=== PATIENT | female | born 1990 | race American Indian/Alaskan Native ===

== ENCOUNTER 2017-03-25 07:30 | Inpatient (IN) | payer MEDICAID ==
--- NOTE | 2017-03-24 12:29 | History and Physical Report ---
History of Present Illness Date of examination: 03/22/17 Date of admission: 03/25/17 Chief complaint: here for c/s and tl History of present illness: Pt presents for repeat c/s with BTL. All questions have been addressed and answered. Consents were signed and placed on the chart. All risk,benefits and alternatives were d/w pt and questions were addressed and answered. EDC Calculations LMP: 05/20/2012 EDC Confirmation: 04/01/2017 Gestational Age: 8 4/7 weeks Past History : 3 Term Births: 2 Living Children: 2 Para: 2 Prev : 2 # 1 Delivery date: 2007 Weeks Gestation: FT labor: no Delivery type: Infant Sex: Female weight: 8-12 Comments: NRFHT # 2 Delivery date: 05/12/2012 Weeks Gestation: 39 Delivery type: Anesthesia type: epidural Delivery location: [facility] [place] Sex: female weight: 8.06 Past Medical History: Reviewed history from 10/14/2011 and no changes required: Negative Past Medical History Past Surgical History: Reviewed history from 10/14/2011 and no changes required: x2 Past Medical History Surgery (Non-rubber curer): x2 Abnormal PAP: negative MARGARETH Exposure: negative Infertility: negative Uterine Anomaly: negative Uterine Surgery (not C/S): negative Other Gynecologic Problems: negative Family Hx: father - DM Infection History Hx of STD: HSV HIV Risk Eval: no Hepatitis B Risk Eval: low risk Personal hx. of genital herpes: yes Partner hx. of genital herpes: no Rash, Viral, or Febrile illness since last LMP? no Varicella/Chicken Pox Status: Previous Disease TB Risk: no Genetic History Congenital Heart Defect: Mom: no Dad: no Candice Disease: Mom: no Dad: no Thalassemia Mom: no Dad: no Neural Tube Defect Mom: no Dad: no Down's Syndrome Mom: no Dad: no Brett-Sachs Mom: no Dad: no Sickle Cell Disease/Trait Mom: no Dad: no Hemophilia Mom: no Dad: no Muscular Dystrophy Mom: no Dad: no Cystic Fibrosis Mom: no Dad: no [place] Chorea Mom: no Dad: no Mental Retardation Mom: no Dad: no Fragile X Mom: no Dad: no Other Genetic/Chromosomal Disorder Mom: no Dad: no Child w/other defect Mom: no Dad: no Enviromental Exposures Xray Exposure: no Medication, drug, or alcohol use since LMP: no Chemical/Other Exposure: no Exposure to Cat Liter: no Hx of Parvovirus (Fifth Disease): no Occupational Exposure to Children: none Active Medications (reviewed today): LO LOESTRIN /10 (NORETHIN SANKET-ETH ESTRAD-FE TABS) () 1 po qd DEPO-PROVERA SUSP (MEDROXYPROGESTERONE ACETATE SUSP) Current Allergies (reviewed today): No known allergies Past History Past Medical History: no pertinent history Past Surgical History: section (x2) Family/Genetic History: none - Obstetrical History Expected Date of Delivery: 04/01/17 Actual Gestation: 39 Week(s) 0 Day(s) : 3 Para: 2 Hx # Term Pregnancies: 2 Number of Living Children: 2 Medications and Allergies Allergies Allergy/AdvReac Type Severity Reaction Status Date / Time No Known Allergies Allergy Unverified 01/25/16 11:46 Home Medications Medication Instructions Recorded Confirmed Last Taken Type Cyclobenzaprine HCl [Flexeril 5 MG 5 mg PO TID #20 tab 01/25/16 Unknown Rx TAB] Ibuprofen [Motrin 800 MG tab] 800 mg PO Q8HR PRN #30 tablet 01/25/16 Unknown Rx Active Meds: Active Medications Citric Acid/Sodium Citrate (Bicitra) 30 ml PO ONCE ONE Stop: 03/25/17 07:01 Famotidine (Pepcid) 20 mg IV ONCE ONE Stop: 03/24/17 12:18 Cefazolin Sodium (Ancef/Sterile Water 2 Gm/20 Ml) 2 gm in 20 mls @ 80 mls/hr IV PREOP NR PRN Reason: Protocol Lactated Ringer's (Lactated Ringers) 1,000 mls @ 2,250 mls/hr IV PREOP ANNE MARIE Stop: 03/25/17 13:27 Oxytocin/Sodium Chloride (Pitocin/Ns 20 Unit/1000ml Drip) 20 units in 1,000 mls @ 0 mls/hr IV TITR ANNE MARIE PRN Reason: As Directed Lidocaine/Prilocaine (Emla) 1 applic TP ONCE PRN PRN Reason: for fisher catheter insertion Metoclopramide HCl (Reglan) 10 mg IV ONCE ONE Stop: 03/25/17 07:01 - Physical Exam Cardiovascular: Normal S1, Normal S2 Lungs: Positive: Clear to auscultation, Normal air movement Abdomen: Positive: normal appearance, soft. Negative: distention, tenderness, guarding Genitourinary (Female): Positive: normal external genitalia, normal perenium - Obstetrical FHR: auscultation normal Results Result Diagrams: 03/25/17 10:25 All other labs normal. Assessment and Plan - Patient Problems (1) 39 weeks gestation of Current Visit: Yes Status: Acute (2) Previous delivery affecting Current Visit: Yes Status: Acute Plan to address problem: -admit -To OR for rpt c/s with BTL -consents signed and placed on the chart. (3) Encounter for female sterilization procedure Current Visit: Yes Status: Acute
[~2017-03-25 07:30] MED LIST: ANCEF/STERILE WATER 2 GM/20 ML 2 GM/20 ML SYRINGE IV NR; BICITRA PO SCH; EMLA TP PRN; PEPCID IV SCH; PITOCin/NS 20 UNIT/1000ML DRIP 20 UNITS/1,000 ML BAG IV SCH; REGLAN IV SCH
[2017-03-25] MEDS: LACTATED RINGERS 1,000 ML IV SCH ×2 (10:45→11:22)
[2017-03-25 11:00] LABS: Basophils % (Auto) 0.2 % (0.0-1.8); Eosinophils % (Auto) 0.6 % (0.0-4.3); Hemoglobin 10.8 gm/dl (10.1-14.3); Mean Corpuscular HGB Conc 34 % (30-34); Mean Corpuscular Hemoglobin 28 pg (28-32); Mean Corpuscular Volume 82 fl (79-97); Platelet Count 267 K/mm3 (140-440); Red Blood Count 3.92 M/mm3 (3.65-5.03); Red Cell Distribution Width 14.5 % (13.2-15.2); White Blood Count 5.7 K/mm3 (4.5-11.0)
--- NOTE | 2017-03-25 11:02 | Anesthesia Consultation ---
Anesthesia Consult and Med Hx Date of service: 03/25/17 - Airway Anesthetic Teeth Evaluation: Good ROM Head & Neck: Adequate Mental/Hyoid Distance: Adequate Mallampati Class: Class II Intubation Access Assessment: Probably Good - Pre-Operative Health Status ASA Pre-Surgery Classification: ASA3 - Other Systems Hx Obesity: Yes (BMI 49.6)
[2017-03-25] MEDS ORDERED: MORPHINE IV PRN (11:03)
[2017-03-25] MEDS ORDERED: PHENERGAN PR PRN (11:03)
[2017-03-25] MEDS ORDERED: ZOFRAN IV PRN (11:03)
[2017-03-25] MEDS ORDERED: PHENERGAN PO PRN (11:03)
[2017-03-25] MEDS ORDERED: NARCAN 0.4 MG/1 ML IV PRN ×2 (11:03→13:29)
--- NOTE | 2017-03-25 11:03 | Anesthesia Day of Surgery ---
Anesthesia Day of Surgery - Day of Surgery Patient Examined: Yes Patient H&P Reviewed: Yes Patient is NPO: Yes
[2017-03-25] MEDS ORDERED: SODIUM CHLORIDE FLUSH SYRINGE 10 ML IV NR (12:00)
[2017-03-25] MEDS ORDERED: MORPHINE ONE (12:01)
[2017-03-25] MEDS ORDERED: WATER FOR IRRIG STERILE IR ONE (12:57)
[2017-03-25] MEDS ORDERED: NACL 0.9% 1000 ML 1,000 ML ONE (12:57)
[2017-03-25] MEDS ORDERED: NACL 0.9% IR ONE (12:57)
[2017-03-25] MEDS ORDERED: XYLOCAINE MPF 2% ONE ×2 (12:57)
[2017-03-25] MEDS ORDERED: NEO SYNEPHRINE/NS Syringe(OR USE) IV ONE (13:04)
--- NOTE | 2017-03-25 13:27 | Operative Report ---
Operative Report Operative Report: Date of procedure: 03/25/2017 Pre-operative diagnosis: 39 weeks gestation Desires permanent sterilization Post-operative diagnosis: Same Procedure name(s): Repeat low transverse section via Pfannenstiel skin incision Bilateral tubal ligation via modified Patterson method Surgeon: Dr. Nichols Grain Farmer: Ms. Violet Scott CST Anesthesia: Epidural/spinal EBL: 800 mL Urine output: 25 mL clear urine out at the end of the procedure Fluids: 1500 mL Findings: Grossly normal fallopian tubes and ovaries bilaterally Live born male infant weight 8 lbs. 1 oz. Apgars of 8 and 9 at one and 5 minutes Indications: Patient presents for repeat section 3 with bilateral tubal ligation. All risks benefits and alternatives were discussed with the patient. Consents were signed and placed on the chart. Procedure: Patient was taking to the operating room. Patient was then prepped and draped in sterile fashion after anesthesia was found to be adequate. A low transverse skin incision was made with the scalpel through previous incisional scar and carried down to the underlying layer of fascia with the Bovie. The fascia was then incised in the midline and this incision was extended bilaterally with the Bovie. The superior aspect of the fascia was grasped with Carmen clamps tented upward and dissected off of the anterior rectus muscles with the scalpel. In similar fashion the inferior aspect of the fascia was grasped with Carmen clamps tented upward and dissected off of the anterior rectus muscles. The rectus muscles were then sharply divided in the midline. The peritoneum was identified and entered into sharply. The Mainor retractor was placeda lower transverse uterine incision was made with the scalpel and extended bilaterally with the bandage scissors. Artificial rupture of membranes was performed yielding clear amniotic fluid. The 's head was then delivered atraumatically. The anterior shoulder and rest of delivered without difficulty. The umbilical cord was clamped x2. The cord was cut. The infant was then placed in sterile bassinet. The cord blood was not collected. The placenta was manually extracted in its entirety. The uterus was exteriorized and cleared of all clots and debris. The uterine incision was closed using 0 Vicryl in a running locking fashion. A second imbricating layer of the same suture was then created. Attention was then turned to the fallopian tubes. A portion of the fallopian tube was grasp with the Avi clamp. Tube was then suture ligated and transected after 2-0 chromic catgut suture had been applied 2 portion of fallopian tube was handed off for pathology. This was repeated on the opposite side. He ostia on both sides were then cauterized with the Bovie. The posterior cul-de-sac was copiously irrigated. The uterus was returned to the abdomen. The gutters were also irrigated. The anterior rectus muscles were reapproximated using 3-0 Vicryl. The anterior rectus fascia was reapproximated using 0 Vicryl in a running fashion. The subcuticular fat was reapproximated using 2-0 Vicryl in a running fashion. The skin was reapproximated with 4-0 Monocryl in a subcuticular stitch. The patient tolerated the procedure well. Sponge lap and needle counts were all correct x3. Patient was taken to the recovery room awake and in stable condition.
[2017-03-25] MEDS ORDERED: TUCKS PAD TP PRN (13:29)
[2017-03-25] MEDS ORDERED: NORCO 5/325 PO PRN (13:29)
[2017-03-25] MEDS ORDERED: LANSINOH TP PRN (13:29)
[2017-03-25] MEDS ORDERED: MYLICON PO PRN (13:29)
[2017-03-25] MEDS ORDERED: ANCEF/NS 1 GM/50 ML 1 GM/50 ML BAG IV SCH (14:00)
[2017-03-25] MEDS ORDERED: D5LR 1,000 ML IV SCH (14:00)
[2017-03-25] MEDS: BENADRYL IV PRN ×3 (16:20→21:26)
[2017-03-25] MEDS: ceFAZolin 1 GM in NACL 0.9% 20 ML IV SCH (21:22)
[2017-03-25] MEDS: TORADOL IV PRN (21:33)
[2017-03-26 01:23] LABS: Hematocrit 27.3 % (30.3-42.9); Hemoglobin 9.2 gm/dl (10.1-14.3)
[2017-03-26] MEDS: ceFAZolin 1 GM in NACL 0.9% 20 ML IV SCH (03:32)
[2017-03-26] MEDS: TORADOL IV PRN (05:40)
[2017-03-26] MEDS: NORCO 5/325 PO PRN ×3 (08:56→20:30)
--- NOTE | 2017-03-26 10:53 | Progress Note ---
Assessment and Plan patient doing well, no complaints. Lochia scant, VSSAF, H&H 9.2/27.3, without concerns. Plan to advance activity as tolerated today, shower etc. Continue postop pathway. - Patient Problems (1) delivery delivered Current Visit: Yes Status: Acute Subjective - Subjective Date of service: 03/26/17 Principal diagnosis: postop day #1 s/p repeat c/s Patient reports: appetite normal, voiding normally, pain well controlled, flatus , ambulating normally, no dizzy ambulation, no nauseated : doing well, nursing well Objective - Vital Signs Latest vital signs: Vital Signs Temp Pulse Resp BP BP Pulse Ox 03/26/17 07:34 98.5 F 61 18 100/51 96 03/26/17 06:10 18 03/26/17 05:40 18 03/26/17 04:31 18 03/26/17 04:00 98.6 F 72 18 101/63 03/26/17 03:31 18 03/26/17 00:00 98.6 F 61 16 101/77 03/25/17 22:03 18 03/25/17 21:33 18 03/25/17 20:00 98.6 F 69 16 99/78 03/25/17 15:00 97.5 F L 59 L 18 113/51 03/25/17 14:36 97.5 F L 63 16 94/51 99 03/25/17 14:09 97.5 F L 03/25/17 13:37 61 14 102/44 95 Intake and Output 03/25/17 03/26/17 03/26/17 23:59 07:59 15:59 Intake Total 960 Output Total 150 1200 Balance -150 -240 Intake: Intake, Free Water 960 Output: Urine 150 1200 Indwelling Catheter 150 Void 1200 Other: Total, Output Amount 150 800 - Exam Breasts: Present: normal, Cardiovascular: Present: Regular rate Lungs: Present: Clear to auscultation, Normal air movement Abdomen: Present: normal appearance, soft Vulva: both: normal Uterus: Present: normal, firm, fundal height at umbilicus Extremities: Present: normal Incision: Present: normal, dry, intact - Labs Labs: Abnormal lab results 03/25/17 03/26/17 Range/Units 10:25 01:15 Hgb 9.2 L (10.1-14.3) gm/dl Hct 27.3 L (30.3-42.9) % [place] % (Auto) 9.3 H (0.0-7.3) % Lymph # 0.9 L (1.2-5.4) K/mm3 Seg Neutrophils % 74.1 H (40.0-70.0) %
[2017-03-26] MEDS ORDERED: BOOSTRIX IM ONE (12:00)
[2017-03-26] MEDS: BENADRYL IV PRN (14:38)
[2017-03-26] MEDS: MOTRIN PO PRN (14:38)
[2017-03-27] MEDS: MOTRIN PO PRN (00:30)
[2017-03-27] MEDS: PERCOCET 5/325 PO PRN ×3 (02:07→20:10)
--- NOTE | 2017-03-27 06:02 | Progress Note ---
Assessment and Plan patient doing well, desires d/c home today. VSSAF, H&H stable, lochia scant, wound care discussed. f/u 1 week in office. - Patient Problems (1) delivery delivered Current Visit: Yes Status: Acute Subjective - Subjective Date of service: 03/27/17 Principal diagnosis: postop day #2 s/p repeat c/s Patient reports: appetite normal, voiding normally, pain well controlled, flatus , ambulating normally, no dizzy ambulation, no nauseated [place]: doing well, nursing well Objective - Vital Signs Latest vital signs: Vital Signs Temp Pulse Resp BP Pulse Ox 03/26/17 16:50 98.2 F 70 20 104/46 97 03/26/17 12:01 98.4 F 83 20 109/50 97 03/26/17 07:34 98.5 F 61 18 100/51 96 03/26/17 06:10 18 Intake and Output 03/26/17 03/26/17 03/27/17 15:59 23:59 07:59 Intake Total 240 120 Output Total 800 Balance -560 120 Intake: Oral 240 120 Output: Urine 800 Void 800 Other: Total, Intake Amount 120 120 Total, Output Amount 800 # Voids Void 1 1 - Exam Breasts: Present: normal, Cardiovascular: Present: Regular rate Lungs: Present: Clear to auscultation, Normal air movement Abdomen: Present: normal appearance, soft, normal bowel sounds Vulva: both: normal Uterus: Present: normal, firm, fundal height at umbilicus Extremities: Present: normal Deep Tendon Reflex Grade: Normal +2 Incision: Present: normal, dry, intact
--- NOTE | 2017-03-27 06:03 | Discharge Summary ---
Providers - Providers Date of Admission: 03/25/17 09:51 Date of discharge: 03/27/17 Attending physician: JONA CROOKS Primary care physician: CARLOS MANUEL MACHADO Hospitalization Reason for admission: section Delivery: Procedure: repeat low transverse Incision: normal, dry, intact Other procedures: none complications: none Discharge diagnosis: IUP at term delivered [place] baby: male Hospital course: uncomplicated c/s delivery Condition at discharge: Good Disposition: DC-01 TO HOME OR SELFCARE - Discharge Diagnoses (1) delivery delivered Status: Acute Plan - Discharge Medications Prescriptions: Docusate Sodium [Colace] 100 mg PO BID PRN #60 capsule PRN Reason: Constipation Ferrous Sulfate 324 mg PO DAILY #30 tablet. Ibuprofen 800 mg PO Q6HR #30 tablet Lidocain2.5%/Prilocai2.5% [Emla] 2 gm TP ONCE #1 tube oxyCODONE /ACETAMINOPHEN [Percocet 5/325] 1 tab PO Q4HR #30 tab - Provider Discharge Summary Activity: routine, no sex for 6 weeks, no heavy lifting 4 weeks, no strenuous exercise Diet: routine Instructions: routine Additional instructions: [] Smoking cessation referral if applicable(refer to patient education folder for contact #) [] Refer to [facility]'s [facility] Booklet Call your doctor immediately for: * Fever > 100.5 * Heavy vaginal bleeding ( >1 pad per hour) * Severe persistent headache * Shortness of breath * Reddened, hot, painful area to leg or breast * Drainage or odor from incision. * Keep incision clean and dry at all times and follow doctor's instructions regarding bathing/showering - Follow up plan Follow up: CARLOS MANUEL MACHADO MD [Primary Care Provider] - 7 Days (Congratulations! Please call [phone] to schedule your son's circumcision and your incision check in 1 week. bring EMLA cream to your son's appointment and await further instruction. call for any questions or concerns.)
[2017-03-28] MEDS: COLACE PO SCH ×2 (00:10→09:06)
[2017-03-28] MEDS: PERCOCET 5/325 PO PRN ×2 (02:52→09:07)
[2017-03-28] MEDS ORDERED: BOOSTRIX IM ONE ×2 (04:00→06:05)
[2017-03-28] MEDS: MOTRIN PO PRN (09:06)
[2017-03-28 13:25] VITALS: BP 128/57
--- NOTE | 2017-03-28 17:39 | Query- General ---
Eloina Watkins___Magdalena Date:_03/28/17 [facility] Lpn/CDS:_Adela Phone#:_[phone] Exercise your independent professional judgment when responding to this query. Questions asked do not imply a particular answer is desired or expected. We greatly appreciate your clarification on this issue. Clinical Documentation States: Operative Report(Dr Nichols on 03/25/17) states" Pre-operative diagnosis: 39 weeks gestation Desires permanent sterilization Post-operative diagnosis: Same Procedure name(s): Repeat low transverse section via Pfannenstiel skin incision Bilateral tubal ligation via modified Ernesto method " Clinical Findings Show (include reference to source document): BMI: 49.6 Given the above clinical scenario can you please provide an appropriate diagnosis based on your knowledge of the patient: PHYSICIAN RESPONSE: [] Obesity [x] Morbid Obesity [] Other [] Comment/Explanation [] Unable to determine Present on Admission: [ y] Yes (Y) [ ] Clinically undeterminable (W) [ ]No(N) Please also document response in your Progress Notes and/or Discharge Summary and indicate if the condition was present on admission. MTDD
== END 2017-03-28 12:00 | disposition home or self-care (01) | DRG 765 ==
LOC: APU 09:51 → OB 15:03
PROVIDERS: ADMIT Obstetrics & Gynecology; ATTEND Obstetrics & Gynecology
PROC: 10D00Z1 Extraction of Products of Conception, Low, Open Approach (ICD-10-PCS; principal; 2017-03-25)
PROC: 0UB70ZZ Excision of Bilateral Fallopian Tubes, Open Approach (ICD-10-PCS; 2017-03-25)
DX: O34.211 Maternal care for low transverse scar from previous cesarean delivery (principal); Z68.42 Body mass index [BMI] 45.0-49.9, adult; Z3A.39 39 weeks gestation of pregnancy; Z37.0 Single live birth; Z83.3 Family history of diabetes mellitus; Z30.2 Encounter for sterilization; O99.214 Obesity complicating childbirth; E66.9 Obesity, unspecified
CPT/HCPCS: 36415; 85014; 85018; 85025; 86850; 86900; 86901; 88302; 90471; 90715; 99211; A6250; C9250; G0463; J0690; J1200; J1885; J2270; J2370; J2590; J2765; J7030; J7120; J7121